=== PATIENT | male | born 1995 | race African-American/Black ===

== ENCOUNTER 2021-04-14 10:35 | Emergency (ER) | payer OTHER ==
[2021-04-14 10:42] VITALS: BP 138/77; PULSE 84; TEMP 98; BMI 25.6
[2021-04-14 12:20] LABS: PH,URINE 7.5 (5.0-8.0); URINE APPEARANCE CLEAR; URINE BILIRUBIN NEGATIVE (NEGATIVE); URINE COLOR YELLOW; URINE GLUCOSE (UA) NEGATIVE (NEGATIVE); URINE KETONE NEGATIVE (NEGATIVE); URINE LEUK ESTERASE NEGATIVE (NEGATIVE); URINE NITRITE NEGATIVE (NEGATIVE); URINE PROTEIN NEGATIVE (NEGATIVE)
== END 2021-04-14 14:33 | disposition home or self-care (01) ==
LOC: JERFT 10:35
DX: N50.819 Testicular pain, unspecified (principal)
CPT/HCPCS: 36415; 76870-TC; 81003; 87086; 87491; 87591; 99284-25